=== PATIENT | female | born 1985 | race Caucasian/White ===

== ENCOUNTER → 2016-08-17 | Outpatient (CLI) | payer BC ==
[~2016-08-17] MED LIST: PRENTAB26 PO
== END | disposition home or self-care (01) ==
LOC: C.PAPS 17:23
PROVIDERS: ATTEND Obstetrics & Gynecology
DX: Z01.419 Encounter for gynecological examination (general) (routine) without abnormal findings (principal)

== ENCOUNTER → 2016-10-13 | Outpatient (CLI) | payer BC | END | disposition home or self-care (01) | LOC: C.LAB 11:13 | PROVIDERS: ATTEND Obstetrics & Gynecology | DX: E03.9 Hypothyroidism, unspecified (principal) ==

== ENCOUNTER → 2016-10-20 | Day surgery (SDC) | payer BC ==
[2016-09-17 14:32] VITALS: BMI 25.0
[2016-10-19 14:04] VITALS: Ht 170.2 cm; Wt 74.5 kg
[~2016-10-20] VITALS: Ht 170.2 cm; Wt 74.5 kg
[~2016-10-20] MED LIST changes: +ATROPINE SULFATE 0.1 MG/ML 5ML SYR IV PRN; +BUPIVACAINE 0.5 % 5 MG/1 ML MPF 30ML VIAL ONE; +CEFAZOLIN 1000MG/55 ML D5W IV SCH; +EpHEDrine SULFATE INJ 50 MG/ML AMP IV PRN; +FENTANYL CITRATE INJ 50 MCG/1 ML 2 ML VIAL IV PRN; +FENTANYL CITRATE INJ 50 MCG/1 ML 2 ML VIAL ONE; +GELATIN SPONGE SZ 100 ONE; +HYDROmorphone INJ 1 MG/ML SYR IV PRN; +LACTATED RINGER'S 1000ML 1,000 ML IV SCH; +LIDOCAINE HCL 2% 2 ML VIAL (20MG/ML) ONE; +MIDAZOLAM HCL 1 MG/ML 2ML VIAL ONE; +ONDANSETRON INJ 2 MG/ML 2 ML VIAL IV PRN; -PRENTAB26 PO; +PROPOFOL IV EMULSION 10 MG/ML 20 ML VIAL IV ONE; +SILVER SULFADIAZINE 1% CR 50 GM JAR EXT ONE; +SODIUM CHLORIDE 0.9% 1000ML 1,000 ML IV SCH
--- NOTE | 2016-10-20 07:02 | History & Physical Bridge - [place] ---
H&P Re-Evaluation Bridge Note: I have examined the patient, reviewed the History & Physical and in the interval since the performance of the History & Physical I have noted the following changes of clinical significance: No changes noted
--- NOTE | 2016-10-20 07:03 | Discharge Instructions-SurgCtr ---
Discharge Instructions Date of Service Oct 20, 2016. Visit Reason for Visit: Bilateral Metatarsalgia Painful Vascular Lesions Discharge Discharge Diagnosis / Problem: same as diagnosis Discharge Goals Goal(s): Decrease discomfort, Improve disease control Activity Recommendations Activity Limitations: as noted below Anesthesia . Post Anesthesia Instructions: If you have had General Anesthesia or IV Sedation: * Do not drive today. * Resume driving when surgeon permits. * Do not make important decisions or sign legal documents today. * Call surgeon for: 1. Temperature elevations greater than 101 degrees F. 2. Uncontrollable pain. 3. Excessive bleeding. 4. Persistent nausea and vomiting. 5. Medication intolerance (nausea, vomiting or rash). * For nausea and vomiting use only clear liquids such as: tea, soda, bouillon until nausea subsides, then gradually increase diet as tolerated. * If you have any concerns or questions, call your surgeon's office. If physician is unavailable and it is an emergency, call 911 or go to the nearest emergency room. . Instructions / Follow-Up Instructions / Follow-Up Medications: * Resume previous medications unless instructed by your surgeon. * Take your medications as prescribed. Call our office ([phone]) at any time, if you experience severe pain that does not subside shortly after taking your pain medication. Activity: * You may walk on your operated foot/ankle using the surgical shoe or cast/splint. Do not put any weight on your operated foot/ankle without wearing the surgical shoe or cast sandal.. Special Care: * Keep your bandage clean and dry. Do not remove your bandage unless otherwise instructed. A small amount of blood may appear on the bandage over the surgical site. Call our office ([phone]) if you bandage becomes blood-soaked or wet. * Elevate your operated foot/ankle on pillows, above the level of your heart, as often as possible during the first 2-3 days following surgery. Keep your knee flexed slightly with a pillow under your knee when you elevate your foot/ankle. * Apply a ice bag to your foot/ankle over the operative site for 20-30 minutes out of each hour while you are awake. Do not allow the ice bag to directly contact bare skin. * Avoid bumping or handling any pins visible in your toes. If any pin feels or appears loose, call the office ([phone]). * Take your oral temperature in the morning and at bedtime. Call our office ([phone]) if your temperature rises above 101 degrees Fahrenheit. Call your surgeon's office at ([phone]) for any problems or concerns such as excessive bleeding and/or pain unrelieved by your prescribed pain medications. If you have any questions, please do not hesitate to ask them. Avoid all tobacco products. If you need help to stop smoking, call [facility] FREE QUITLINE at . This is a free call. Follow-up: Follow-up with Dr. Antonio Diet Recommendations Home Diet: resume previous diet Pending Studies Studies pending at discharge: no Medical Emergencies . Who to Call and When: Medical Emergencies: If at any time you feel your situation is an emergency, please call 911 immediately. . Non-Emergent Contact Non-Emergency issues call your: Primary Care Provider . . "Provider Documentation" section prepared by Suma Everett.
--- NOTE | 2016-10-20 07:50 | HISTORY & PHYSICAL EXAMINATION ---
DATE OF ADMISSION: 10/20/2016 HISTORY OF PRESENT ILLNESS: This 31-year-old female presents for preop history and physical requesting lesion surgery. Complaining of skin over the right fifth metatarsal head, plantar aspect of the right heel and posterior halluces callus bleeding with painful lesions that hurt while ambulating. She notes acid therapy, cryotherapy and debridements have improved the condition somewhat; however, yet to resolve the condition and due to spreading and continued involvement she is requesting surgical intervention. PAST SURGICAL HISTORY: Ankle surgery, wisdom teeth removal. PAST MEDICAL HISTORY: Anxiety disorder, Graves' disease, thyroid condition, gallbladder problems. MEDICATIONS: None. ALLERGIES: No known medical allergies. FAMILY HISTORY: Arthritis, Alzheimer's disease, anxiety, stress disorder, gallbladder disease, high cholesterol, hypertension, thyroid disease. SOCIAL HISTORY: The patient admits to alcohol use, drinking described as social. REVIEW OF SYSTEMS: Unremarkable except chief complaint. PHYSICAL EXAMINATION: VITAL SIGNS: 5 feet 8 inches, weight 164 pounds, body mass index 25. CONSTITUTIONAL: The patient appears well-developed and nourished with good attention to body grooming and habitus. HEAD AND FACE: Head is normocephalic and atraumatic without any gross head, face, or neck masses. EYES: Conjunctival and pupillary reaction to light and accommodation are normal. EARS, NOSE, MOUTH, AND THROAT: Unremarkable. NECK: Neck is supple. Trachea is midline without any adenopathy or crepitance palpable. CARDIOVASCULAR: Normal S1, S2 without murmur, gallops, rubs, or clicks noted. RESPIRATORY: Chest is symmetric. No scars are visible. No port or pacemaker noted. LUNGS: Clear to auscultation bilaterally and equal. GASTROINTESTINAL: Abdominal organs, bladder, and kidney show no abnormalities, masses, tenderness, or rigidity. LYMPHATICS: No popliteal or supraclavicular lymphadenopathy noted. VASCULAR: Lower extremity exam DP palpable. PT palpable. DERMATOLOGIC: Cutaneous lesions are observed somewhat right fifth, plantar aspect of the right heel, plantar aspect right hallux, plantar aspect of the right arch and also calloused interruption of skin tension lines, pinpoint bleeding upon debridement. Over 120 lesions are present. NEUROLOGICAL: Touch, pin, vibratory pinprick sensations are normal. Deep tendon reflexes normal. MUSCULOSKELETAL: Muscle tone is normal. Muscle strength 5/5 all groups tested. Muscle tone shows evidence of an enlarged dorsal medial eminence. IMPRESSION: 1. 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 2. Hallux abducto valgus deformity bilaterally. PLAN: Informed the patient the etiology, possible treatment options including debridement, application of acid, surgical excision, cryotherapy, CO2 laser vaporization, bleomycin. Reviewed procedures and complications for each treatment at length. All questions were answered. The patient is aware that no treatment in common use is 100% effective and success rate for all treatments is relatively similar. The patient elects to proceed with CO2 laser vaporization and partial lesion excision. This will be performed over 120 lesions bilateral lower extremities. This will be performed under local with IV sedation as an outpatient at the surgery center. The procedure, risks and complications were fully reviewed with the patient. Consent form and foot diagram and illustration reviewed in all their entire and all the patient's questions were answered. Complications were discussed in detail with the patient including pain, infection, swelling that may or may not be excessive, pins and needles feeling, numbness, metatarsalgia, excessive bleeding, blanching of skin, enlarged scar, failure of the procedure, recurrence or worsening condition which may or may not require further surgery, adverse reaction to anesthesia, allergic reaction to suture or other implant material, loss of toe, foot, or leg; transfer lesion or callus, peripheral neurovascular complications such as phlebitis, damage to nerves or vascular structures, significant chronic pain, chronic nerve pain or damage, and general medical complications. The patient will be required to be in a surgery shoe for a minimum of 3-7 days and not return to dress shoe for 3 weeks depending on postop edema, need for accommodative padding. She is aware that these will have to stay dry to avoid infection for over 6 weeks. She is aware that this is an elective procedure and I recommended a second opinion. She states she understood, consent form was signed with a copy of the foot diagram was given to patient. Verbal and written postop instructions were given. The patient will return to the office for postop check or sooner if medically necessary. Instructed to keep the dressing clean, dry and intact until seen at the office at time of the preoperative appointment, prescriptions for Silvadene, hydrocodone and Augmentin were dispensed.
[2016-10-20 08:30] VITALS: TEMP 36.4
[2016-10-20 09:07] VITALS: BP 91/62; PULSE 44; O2SAT 100
--- NOTE | 2016-10-20 09:17 | Anesthesia Progress Nt - [facility] ---
Anesthesia Post Op Note Date & Time Oct 20, 2016 at 09:17 Vital Signs Pain Intensity: 0 Vital Signs Past 12 Hours Date Time Temp Pulse Resp B/P Pulse Ox O2 Delivery O2 Flow Rate FiO2 10/20/16 09:07 44 91/62 100 Room Air 10/20/16 08:30 36.4 68 16 95/66 98 Room Air 10/20/16 06:53 36.5 62 16 108/70 97 Room Air Notes Mental Status: alert / awake / arousable, participated in evaluation Pt Amnestic to Procedure: Yes Nausea / Vomiting: adequately controlled Pain: adequately controlled Airway Patency, RR, SpO2: stable & adequate BP & HR: stable & adequate Hydration State: stable & adequate Anesthetic Complications: no major complications apparent
--- NOTE | 2016-10-20 10:52 | OPERATIVE REPORT ---
DATE OF OPERATION: 10/20/2016 PREOPERATIVE DIAGNOSES: 1. Painful vascular lesions bilaterally. 2. Cutaneous vascular lesions bilaterally. 3. Metatarsalgia secondary to lesions. POSTOPERATIVE DIAGNOSES: Same. PROCEDURES: Partial lesion excision to the depth of 1.2, right x2, left x4; CO2 laser vaporization 6 square cm bilateral lower extremity. HEMOSTASIS: None. ESTIMATED BLOOD LOSS: Less than 5 mL. ANESTHESIA: IV with local sedation, preoperative block given 0.5% Marcaine plain, a total of 30 mL. MATERIALS: Gelfoam. COMPLICATIONS: None. DISPOSITION: The patient tolerated the procedure and anesthesia well without complications, transferred to recovery room with vital signs stable and neurovascular status intact. DESCRIPTION OF PROCEDURE: The patient was brought to the OR and placed on the OR table in supine position. Upon completion of sedation by the anesthesia department, a local field block was performed with 30 mL 0.5% Marcaine plain. The feet were scrubbed, prepped and draped in the usual aseptic fashion. Attention was directed over painful lesions. Four areas were excised from the left foot. One of these included a pigmented lesion in the mid foot that was not of cutaneous vascular lesion though an area of irritation for the patient. Three were noted over the left hallux. These were sent and labeled separately and 2 cutaneous vascular lesions from the right hallux. All these were excised to the depth of 1.2 cm. These areas were ablated with the exception of the arch pigmented lesion with CO2 laser at 10 gonzales. Area was debrided and reapplication applied. Gelfoam was placed over the lesion excision sites with Silvadene, 4 x 4s, ABDs, Kerlix and an ELIEL. The patient tolerated the procedure and anesthesia well without complications, transferred to recovery room with vital signs stable and neurovascular status intact. I attest to the content of the Intraoperative Record and any orders documented therein. Any exceptio ns are noted below.
== END | disposition home or self-care (01) ==
LOC: X.SURG 06:45
PROVIDERS: ATTEND Podiatrist Foot & Ankle Surgery
DX: B07.8 Other viral warts (principal); B07.9 Viral wart, unspecified; M77.40 Metatarsalgia, unspecified foot

== ENCOUNTER → 2017-03-31 | Outpatient (CLI) | payer BC | END | disposition home or self-care (01) | LOC: C.LAB 16:24 | PROVIDERS: ATTEND Obstetrics & Gynecology | DX: Z34.81 Encounter for supervision of other normal pregnancy, first trimester (principal) ==

== ENCOUNTER → 2017-03-31 | Outpatient (CLI) | payer BC ==
[2017-04-04 08:05] LABS: CHLAMYDIA TRACH RNA*** NOT DETECTED (NOT DETECTED); GC (NEIS GONORRHOEAE)RNA** NOT DETECTED (NOT DETECTED)
== END | disposition home or self-care (01) ==
LOC: C.LABSPEC 14:42
PROVIDERS: ATTEND Obstetrics & Gynecology
DX: Z34.81 Encounter for supervision of other normal pregnancy, first trimester (principal)

== ENCOUNTER → 2017-10-28 | Outpatient (CLI) | payer BC | END | disposition home or self-care (01) | LOC: C.LABSPEC 15:06 | PROVIDERS: ATTEND Obstetrics & Gynecology | DX: Z34.83 Encounter for supervision of other normal pregnancy, third trimester (principal) ==

== ENCOUNTER 2017-11-28 06:30 | Inpatient (IN) | payer BC ==
[~2017-11-28] VITALS: Ht 172.7 cm; Wt 95.9 kg
[2017-11-29 18:36] VITALS: Ht 172.7 cm; Wt 95.9 kg
[2017-11-29] MEDS ORDERED: LACTATED RINGER'S 1000ML 1,000 ML IV PRN (19:17)
[2017-11-29] MEDS ORDERED: DINOPROSTONE 10 MG INSERT PV ONE (19:30)
[2017-11-29] MEDS ORDERED: PENICILLIN G POTASSIUM IV 6 MU in DEXTROSE 5% 250ML 250 ML IV ONE (19:30)
[2017-11-29 19:48] LABS: HEMATOCRIT 33.8 % (37-47); HEMOGLOBIN 11.6 g/dL (12.0-16.0); MEAN CELL VOLUME 91.6 fL (80-100); MEAN CORPUSCULAR HEMOGLOBIN 31.4 pg (25-34); MEAN CORPUSCULAR HGB CONC 34.3 g/dl (32-36); MEAN PLATELET VOLUME 10.3 fL (7.4-10.4); PLATELET COUNT 191 K/uL (130-400); RED CELL DISTRIBUTION WIDTH CV 12.7 % (11.5-14.5); RED CELL DISTRIBUTION WIDTH SD 42.7 fL (36.4-46.3); WHITE BLOOD COUNT 10.46 K/uL (4.8-10.8)
[2017-11-29] MEDS: PENICILLIN G POTASSIUM IV 3 MU in DEXTROSE 5% 100ML 100 ML IV PRN (23:17)
[2017-11-30] MEDS ORDERED: OXYTOCIN 30 UNITS/500ML NSS IV ONE ×2 (01:53→06:19)
[2017-11-30] MEDS: PENICILLIN G POTASSIUM IV 3 MU in DEXTROSE 5% 100ML 100 ML IV PRN (03:10)
[2017-11-30] MEDS ORDERED: BUTORPHANOL TARTRATE 1 MG/ML VIAL IV PRN (03:15)
[2017-11-30] MEDS ORDERED: BUTORPHANOL TARTRATE 1 MG/ML VIAL ONE (03:15)
[2017-11-30] MEDS ORDERED: EpHEDrine SULFATE INJ 50 MG/ML AMP ONE (05:08)
[2017-11-30] MEDS ORDERED: BUPIVACAINE 0.25% 30 ML VIAL ONE (05:08)
[2017-11-30] MEDS ORDERED: FENTANYL CITRATE INJ 50 MCG/1 ML 2 ML VIAL ONE (05:09)
[2017-11-30] MEDS ORDERED: FENTANYL 2MCG/ML ROPIV 1.25MG/ML 100ML BAG ONE (05:10)
[2017-11-30] MEDS ORDERED: NALOXONE HCL INJ 1 MG in SODIUM CHLORIDE 0.9% 1000ML 1,000 ML IV PRN (05:47)
[2017-11-30] MEDS ORDERED: LACTATED RINGER'S 1000ML 500 ML IV PRN (05:47)
[2017-11-30] MEDS ORDERED: FENTANYL 2MCG/ML ROPIV 1.25MG/ML 100ML BAG EPI PRN (06:00)
[2017-11-30] MEDS ORDERED: NALBUPHINE HCL INJ 10 MG/ML AMP IV PRN (06:00)
[2017-11-30] MEDS ORDERED: EpHEDrine SULFATE INJ 50 MG/ML AMP IV PRN (06:00)
[2017-11-30] MEDS ORDERED: NALOXONE HCL INJ 0.4 MG/1 ML VIAL/CARP IV PRN (06:00)
[2017-11-30] MEDS ORDERED: DiphenhydrAMINE HCL 50 MG/ML VIAL IV PRN (06:00)
[2017-11-30] MEDS ORDERED: ONDANSETRON INJ 2 MG/ML 2 ML VIAL IV PRN (06:00)
[2017-11-30] MEDS ORDERED: METHYLERGONOVINE MALEATE 0.2 MG/ML AMP ONE (06:32)
[2017-11-30] MEDS ORDERED: SUPERCREAM 0.870 % 15GM JAR EXT PRN (06:45)
[2017-11-30] MEDS ORDERED: HYDROCORTISONE ACETATE 25 MG SUPP PR PRN (06:45)
[2017-11-30] MEDS ORDERED: OXYCODONE/ACETAMINOPHEN 5-325 TAB PO PRN (06:45)
[2017-11-30] MEDS ORDERED: DIPHTHERIA/TETANUS/PERTUSSIS 0.5 ML SYR/VIAL IM. ONE (06:45)
[2017-11-30] MEDS ORDERED: LANOLIN OINT EXT PRN (06:45)
[2017-11-30] MEDS ORDERED: METHYLERGONOVINE MALEATE 0.2 MG/ML AMP IM ONE (06:45)
[2017-11-30] MEDS ORDERED: OXYTOCIN 30 UNITS/500ML NSS IV PRN (06:45)
[2017-11-30] MEDS ORDERED: BENZOCAINE 20% AER SPR 82.5 GM CAN EXT PRN (06:45)
[2017-11-30] MEDS ORDERED: ACETAMINOPHEN/CODEINE 300/30MG TAB PO PRN ×2 (06:45)
--- NOTE | 2017-11-30 07:14 | OPERATIVE REPORT ---
DATE OF OPERATION: 11/30/2017 DELIVERY NOTE This is a 31-year-old 3, para 3, treated for Graves' disease. She had an uneventful course. Her blood type is B positive, rubella immune. She went into labor in the morning of 11/29/2017, checked her in the office twice. She began to dilate, sent her to maternity where she was given IV penicillin for positive beta strep status and then eventually given a Cervidil tape. She labored on during the night with the Cervidil tape. Eventually, the tape fell out. She was given a dose of Stadol; however, she was having difficulty with pain management. She went to epidural. Soon she got epidural, she was fully dilated, pushed about 2 times, pushed out a live male infant via direct occiput anterior position over an intact perineum. The infant was suctioned through the mouth and the nose, delivered without difficulty. My own estimation 1 and 5 minute Apgars were 8 and 9 respectively. Placenta was removed with IV Pitocin running, after cord blood was taken. Total blood loss was 300 mL. Perineum had no lacerations. The bimanual examination revealed the uterus to be contracted, no hematoma formation and the patient tolerated delivery well. I attest to the content of the Intraoperative Record and any orders documented therein. Any exception s are noted below.
[2017-11-30] MEDS: PRENATAL VITAMIN TAB PO SCH (08:00)
[2017-11-30] MEDS: FERROUS SULFATE 325 MG TAB PO SCH (08:00)
--- NOTE | 2017-11-30 08:14 | Anesthesia Procedure Note ---
Anesthesia Epidural Removal Nt Date & Time November 30, 2017 at 08:13 Notes Mental Status: alert / awake / arousable, participated in evaluation Nausea / Vomiting: adequately controlled Pain: adequately controlled Airway Patency, RR, SpO2: stable & adequate BP & HR: stable & adequate Hydration State: stable & adequate Neuraxial Anesthesia: was administered, sensory block is resolving Anesthetic Complications: no major complications apparent, pt satisfied with anesthetic care Epidural: removed without complications, with tip intact
[2017-11-30 09:50] VITALS: BP 116/61; PULSE 83; TEMP 36.9
[2017-11-30 11:15] VITALS: BP 106/70; PULSE 78; TEMP 36.7; O2SAT 99
[2017-11-30 15:30] VITALS: BP 109/70; PULSE 68; TEMP 36.8; O2SAT 98
[2017-11-30] MEDS: IBUPROFEN 600 MG TAB PO PRN ×2 (16:43→20:49)
[2017-11-30] MEDS: ACETAMINOPHEN 325 MG TAB PO PRN (18:56)
[2017-11-30 20:00] VITALS: BP 120/74; PULSE 65; TEMP 36.5; O2SAT 98
[2017-11-30 23:30] VITALS: BP 102/65; PULSE 62; TEMP 36.7
[2017-12-01] MEDS: IBUPROFEN 600 MG TAB PO PRN ×4 (01:12→18:58)
[2017-12-01 03:40] VITALS: BP 104/67; PULSE 69; TEMP 36.9
[2017-12-01] MEDS: ACETAMINOPHEN 325 MG TAB PO PRN ×3 (03:42→15:41)
[2017-12-01 07:01] LABS: HEMATOCRIT 34.2 % (37-47); HEMOGLOBIN 11.8 g/dL (12.0-16.0)
[2017-12-01 07:20] VITALS: BP 98/64; PULSE 72; TEMP 36.3; O2SAT 98
[2017-12-01] MEDS: FERROUS SULFATE 325 MG TAB PO SCH (08:37)
[2017-12-01] MEDS: PRENATAL VITAMIN TAB PO SCH (08:37)
--- NOTE | 2017-12-01 09:00 | OB/GYN Progress Note ---
[facility] Progress Note Date of Service: December 01, 2017. Patient is seen and examined. She feels well, no complaints. Ambulating without dizziness Voiding without difficulty Tolerating regular diet with out N&V Bleeding is minimal No fever/ chills/ CP/ SOB/ N&V/ Leg pain Breast feeding without problems Date Time Temp Pulse Resp B/P (MAP) Pulse Ox O2 Delivery O2 Flow Rate FiO2 12/01/17 03:40 36.9 69 18 104/67 (79) Room Air 11/30/17 23:30 Room Air 11/30/17 23:30 36.7 62 18 102/65 (77) Room Air 11/30/17 20:00 36.5 65 18 120/74 (89) 98 Room Air 11/30/17 15:30 36.8 68 18 109/70 (83) 98 Room Air 11/30/17 11:15 99 Room Air 11/30/17 11:15 36.7 78 18 106/70 (82) 99 Room Air 11/30/17 09:50 Room Air 11/30/17 09:50 36.9 83 18 116/61 (79) Room Air Last 24 Hours Test 12/01/17 06:33 Hemoglobin 11.8 g/dL Hematocrit 34.2 % PE: General: Alert, orientedx3, NAD Abd: soft, NT, fundus firm, below Umbilicus Perineum intact, Lochia rubra minimal Ext; NT, no edema AP: 32 yo s/p , ppd# 1 VSS Afebrile doing well Continue routine care All questions were answered D/C home tomorrow
--- NOTE | 2017-12-01 10:14 | Discharge Instructions ---
Discharge Instructions Date of Service December 01, 2017. Admission Reason for Admission: Check Labor Discharge Discharge Diagnosis / Problem: Discharge Goals Goal(s): Routine recovery after delivery Medications Continue Dispensed Medications: lansinoh Activity Recommendations Activity Limitations: as noted below ACTIVITY RECOMMENDATIONS: * Gradual return to full activity over the next 2-3 weeks. * No lifting - nothing heavier than baby over the next 2-3 weeks. * Do not engage in vigorous exercise, sexual activity or sports until cleared by your physician. * Do not drive or operate any motorized equipment until cleared by your physician. * You may shower/bathe daily. BREAST CARE: If you are not breast feeding: * Wear a supportive bra 24 hours a day for one to two weeks. * Avoid stimulating your breasts and nipples as much as possible during the first few weeks after delivery. * When taking a shower, have the warm water hit your back, not breasts. * When your breasts feel full, apply ice packs. Usually three to four times a day helps ease the discomfort. * Take a mild pain medication (Tylenol/Motrin) when you are uncomfortable. If breast feeding: * Use breast milk to lubricate nipples. Lansinoh cream may be used for sore nipples. You do not need to remove cream prior to breast feeding. If using a different brand of cream, check the label for directions regarding removal of cream prior to nursing. * Wear a supportive bra. * If having problems with breasts or breast feeding, call a sr risk management consultant or your health care provider. EPISIOTOMY CARE: After delivery, if you have an episiotomy (stitches), the following steps will ease discomfort and aid healing. * For the first 24 hours after delivery, place ice packs next to your episiotomy to help reduce swelling. * After the first 24 hour-period, sitz baths, either portable or in the tub, are suggested. A shower with a shower arm sprayed over the episiotomy may be comforting. * Evita care should be done after each voiding and bowel movement. Squirt warm water from a plastic bottle over the perineum (region of the body between the anus and urinary opening) and pat dry. * Use Dermoplast to ease discomfort. Shake container. [place] directly over the episiotomy. * Place a Tucks on a clean sanitary pad next to your episiotomy. OVER THE COUNTER MEDICATION: * For discomfort or pain, you may use Acetaminophen (Tylenol), Ibuprofen (Advil ), or Naproxen (Aleve) following the package directions. * For constipation you may use Colace following the package directions. SPECIAL CARE INSTRUCTIONS: When you are discharged from the hospital, it is important for you to follow the instructions listed below: * During the first week at home, you should be able to care for yourself and your baby. In addition, the usual light household activities are encouraged. * Limit your activities to the way you feel. Do not try to clean the house or move furniture. Be sensible. * If you actively engage in sports and have done so up until the time of your delivery, you may resume these activities as soon as you feel able. This may take up to one month or even longer. Use good judgment. * Continue to take your vitamins for at least six weeks after the of your baby. * Your diet need not be limited unless you were on a special diet before your delivery. Breast-feeding mothers need around 2500 calories per day and at least 64-80 ounces of fluid per day (8 to 10 glasses). * You should eat foods from the four major food groups. Crash diets or fad diets are to be avoided. Eating lean meats, fresh fruits and vegetables, low-fat dairy products, high fiber foods and a regular exercise program, will help you get back to your pre- weight without putting your health at risk. * Constipation is sometimes a problem after delivery. Take a mild laxative as needed. If breast feeding, Milk of Magnesia is acceptable to use. You may use a suppository or Fleets enema if no episiotomy. * A daily shower or tub bath is suggested. Be sure to thoroughly and gently dry the perineum. * A bloody vaginal discharge will usually continue until around four weeks post . A small amount of bleeding may continue for as long as six weeks. Vaginal discharge changes from the bright red bleeding after delivery to pink then brownish and finally yellowish-pink before becoming white and disappearing. * Bleeding may increase with activity. Your first period may come in 4-8 weeks. If you are breast feeding, your period may be delayed even longer. * [place] (sex) can begin whenever both you and your partner feel comfortable and do not have any form of genital infection. It is recommended that you wait until after your return appointment and discuss with your physician. If you have questions, please talk to your health care practitioner. A condom should be used to prevent infection and . * Foreplay, gentle intercourse and lubrication is very important the first several times to prevent pain. A water-based lubricant such as K-Y jelly or Astroglide may be used. * Tampons may be used six weeks after delivery. * Douching should be avoided for 6 weeks after delivery. * If you have RH negative blood and your baby is RH positive, you will receive RHOGAM by injection prior to discharge. The nurse will give you a card to keep with you that has the date and place that you received RHOGAM after delivery. * During your care, you had a Rubella screen done to check for the presence of rubella antibodies in your blood. If your test was negative, you will receive a Rubella vaccine prior to discharge. This vaccine may cause a fever, soreness at the injection site and flu-like symptoms. If these symptoms persist, notify your health care practitioner. is not advised for three months after a Rubella vaccine. There is a higher chance of having a baby with defects if conceived within three months of getting the vaccine. * If you were discharged 24 hours from delivery or before 48 hours: Visiting nurses will come to your home 48 hours after discharge to assess you and your baby. The visiting nurse will meet with you while you are in the hospital to arrange a time and get directions to your home. * Verbalizes understanding of car seat law as reviewed with patient nursing. * Car Seat hand-out given and reviewed with patient by nursing. * Shaken baby information reviewed with patient by nursing. Call you doctor if: * Heavy bleeding (saturating several pads an hour) or passing clots the size of your fist. * A fever >101 degrees F (38.3 degrees C) on two occasions four hours apart and/or chills. * Unusual pain in the pelvic or vaginal areas. * "Baby Blues" lasting longer than two weeks. If you have any questions or concerns, call your health care practitioner at . FOLLOW-UP VISIT: * Please call the office at to schedule a 6 week examination. It is important you keep this appointment. * It is important for you to make arrangements for either yearly or twice yearly check-ups thereafter. . Current Hospital Diet Patient's current hospital diet: Regular Diet Discharge Diet Recommended Diet: Regular Diet Pending Studies Studies pending at discharge: no Medical Emergencies . Who to Call and When: Medical Emergencies: If at any time you feel your situation is an emergency, please call 911 immediately. . Non-Emergent Contact Non-Emergency issues call your: Specialist Call Non-Emergent contact if: temperature is above 100.5, your pain is not controlled, your pain is worsening . . "Provider Documentation" section prepared by Antoine Rob. .
[2017-12-01 15:35] VITALS: BP 104/72; PULSE 68; TEMP 36.4
[2017-12-01] MEDS ORDERED: BISACODYL 5 MG TABEC PO SCH (20:00)
[2017-12-01 20:20] VITALS: BP_DIAS 72; PULSE 68; TEMP 36.4
[2017-12-02] MEDS ORDERED: BISACODYL 10 MG SUPP PR PRN (07:00)
== END 2017-12-01 20:30 | disposition home or self-care (01) | DRG 775 ==
LOC: C.LD 11-29 17:28 → C.OBG 11-30 09:58
PROVIDERS: ADMIT Obstetrics & Gynecology; ATTEND Obstetrics & Gynecology
PROC: 10E0XZZ Delivery of Products of Conception, External Approach (ICD-10-PCS; principal; 2017-11-30)
DX: O99.824 Streptococcus B carrier state complicating childbirth (principal); Z3A.40 40 weeks gestation of pregnancy; Z37.0 Single live birth

== ENCOUNTER 2022-01-07 06:47 | Inpatient (IN) ==
[2022-01-07] MEDS ORDERED: OXYTOCIN 30 UNITS/500 ML BAG IV PRN ×2 (07:44→17:21)
[2022-01-07] MEDS ORDERED: PENICILLIN G POTASSIUM 6 MU in DEXTROSE 5% 250 ML IV STA (07:49)
[2022-01-07 08:24] LABS: Hematocrit (blood only) 35.9 % (37-47); Hemoglobin 11.8 g/dL (12.0-16.0); Mean Corpuscular Hgb Conc 32.9 g/dL (32-36); Mean Corpuscular Volume 91.3 fL (80-100); Mean Platelet Volume 10.7 fL (7.4-10.4); Platelet Count 248 K/uL (130-400); RDW Coefficient of Variation 13.4 % (11.5-14.5); RDW Standard Deviation 44.2 fL (36.4-46.3); Red Blood Count 3.93 M/uL (4.2-5.4); White Blood Count 8.39 K/uL (4.8-10.8)
[2022-01-07] MEDS: LACTATED RINGER'S 1,000 ML IV PRN ×2 (08:35→15:24)
[2022-01-07] MEDS ORDERED: miSOPROStoL 50 MCG TAB PO ONE (12:29)
[2022-01-07] MEDS: PENICILLIN G POTASSIUM 3 MU in DEXTROSE 5% 100 ML IV PRN ×2 (12:40→16:38)
[2022-01-07] MEDS ORDERED: ePHEDrine sulfate 50 MG/ML AMP ONE (14:40)
[2022-01-07] MEDS ORDERED: BUPIVACAINE 0.25% 30 ML VIAL ONE (14:42)
[2022-01-07] MEDS ORDERED: fentaNYL citrate 100 MCG/2 ML VIAL ONE (14:42)
[2022-01-07] MEDS ORDERED: SODIUM CHLORIDE 0.9% INJ 10 ML VIAL ONE (14:42)
[2022-01-07] MEDS ORDERED: fentaNYL 2MCG/ML ROPIVACAINE 1.25MG/ML 100 ML BAG EPI ONE (14:42)
[2022-01-07] MEDS ORDERED: ePHEDrine sulfate 50 MG/ML AMP IV PRN (14:59)
[2022-01-07] MEDS ORDERED: NALBUPHINE HCL INJ 10 MG/ML AMP IV PRN (14:59)
[2022-01-07] MEDS ORDERED: NALOXONE HCL 1 MG in SODIUM CHLORIDE 0.9% 1000ML 1,000 ML IV PRN (14:59)
[2022-01-07] MEDS ORDERED: diphenhydrAMINE 50 MG/ML VIAL IV PRN (14:59)
[2022-01-07] MEDS ORDERED: fentaNYL 2MCG/ML ROPIVACAINE 1.25MG/ML 100 ML BAG EPI PRN (14:59)
[2022-01-07] MEDS ORDERED: ONDANSETRON INJ 2 MG/ML 2 ML VIAL IV PRN (14:59)
[2022-01-07] MEDS ORDERED: NALOXONE HCL 0.4 MG/1 ML VIAL/CARP IV PRN (14:59)
--- NOTE | 2022-01-07 15:01 | Anesthesiology Consultation ---
Date of Service January 07, 2022 Assessment & Plan (1) Encounter for pre-operative examination: Chart Review Chart Review: Acceptable Risk for Labor Epidural Consults Requested none History Height/Weight Height: 5 ft 7 in Weight: 106.541 kg Allergies Allergy/AdvReac Type Severity Reaction Status Date / Time No Known Allergies Allergy Unverified 11/29/17 18:34 Medications Home Medications Medication Instructions Recorded Confirmed Last Taken Xyzal 01/06/22 01/06/22 vit no.95-ferrous 1 tab PO 01/06/22 01/06/22 fumarate 28 mg-folic acid 800 mcg tablet () Active Medications Generic Name Dose Route Start Last Admin Trade Name Freq PRN Reason Stop Dose Admin Lactated Ringer's 1,000 mls @ 125 mls/hr 01/07/22 07:44 01/07/22 13:45 Lr IV 01/09/22 07:43 0 mls/hr .Q8H PRN Infusion L&D Protocol Protocol Penicillin G Potassium 3 mu/ 106 mls @ 100 mls/hr 01/07/22 10:57 01/07/22 13:44 Dextrose IV 01/17/22 10:56 Infused Q4H PRN Infusion GBS(+) Until Delivery Past Medical History Medical History Sprain of ligament of left ankle Exercise / Class Metabolic Activity II 4-5 Yardwork/Stairs/Walk up hill Past Surgical History Surgical History [place] teeth extracted Past Anesthesia History No Hx of Anesthesia Complications and No Family Hx of Anesthesia Complications History of PONV No Hx of PONV and No Hx of Motion Sickness Social History Smoking Status: Never smoker Hx Alcohol Use: No Hx Substance Use: No Physical Exam Vital Signs Last Vital Signs Temp 36.7 C 01/07/22 12:45 Pulse 70 01/07/22 15:23 Resp 18 01/07/22 07:11 BP 136/86 01/07/22 15:23 Pulse Ox 100 01/07/22 15:19 Testing Laboratory Results 01/07/22 07:52 Blood Type B Positive 01/07/22 07:52 Antibody Screen NEGATIVE 01/07/22 07:52
[2022-01-07] MEDS ORDERED: METHYLERGONOVINE MALEATE 0.2 MG/ML AMP ONE (17:19)
[2022-01-07] MEDS ORDERED: oxyCODONE/ACETAMINOPHEN 5mg/325mg TAB PO PRN (17:21)
[2022-01-07] MEDS ORDERED: METHYLERGONOVINE MALEATE 0.2 MG/ML AMP IM ONE (17:21)
[2022-01-07] MEDS ORDERED: DIPHTHERIA/TETANUS/PERTUSSIS 0.5 ML SYR/VIAL IM ONE (17:21)
[2022-01-07] MEDS ORDERED: bisacodyL 10 MG SUPP PR PRN (17:21)
[2022-01-07] MEDS ORDERED: BENZOCAINE 20% AER SPR 82.5 GM CAN EXT PRN (17:21)
[2022-01-07] MEDS ORDERED: ACETAMINOPHEN 325 MG TAB PO PRN (17:21)
[2022-01-07] MEDS ORDERED: ACETAMINOPHEN W/CODEINE #3 1 TAB PO PRN (17:21)
[2022-01-07] MEDS ORDERED: HYDROCORTISONE ACETATE 25 MG SUPP PR PRN (17:21)
--- NOTE | 2022-01-07 18:06 | Delivery Summary ---
DATE OF DELIVERY: 01/07/2022. DELIVERY NOTE: She is a 4, para 4, B positive, group B strep positive, was called the answer ing service was in early labor. She came in, she was like 2-3, having sporadic contractions. She wa s given a dose of penicillin, then about 4 hours later, she was given a p.o. Cytotec, got her second dose of penicillin and then at about 5:00 p.m., she went to full dilatation. Prior to getting to full dilatation, she was given epidural around 2-2:30. Epidural worked well. She went to full dilatatio n, pushed out a live female via direct occiput anterior position over an intact perineum. The infant was suctioned through the mouth and the nose. Shoulders were delivered without difficulty. cord was clamped after allowing it to pulse for one full minute. Cord was then cut by the father. C ord blood was taken. With IV Pitocin running the placenta was removed intact. Following this, she w as given IM Methergine. Inspection of the perineum revealed everything to be intact. No lacerations . Estimated blood loss was 200 mL and placenta was sent not for examination, but just to be held. Job ID: [id number]
--- NOTE | 2022-01-07 18:58 | Anesthesia Procedure Note ---
Date of Service January 07, 2022 Anesthesia Post Epidural Note Vital Signs Vital Signs: Temp Pulse Resp BP Pulse Ox 36.5 C 76 16 110/60 100 01/07/22 15:47 01/07/22 18:51 01/07/22 15:47 01/07/22 18:51 01/07/22 17:09 Notes Mental Status: alert / awake / arousable and participated in evaluation Patient Amnestic to Procedure: No Nausea / Vomiting: adequately controlled Pain: adequately controlled Airway Patency, RR, SpO2: stable & adequate BP & HR: stable & adequate Hydration State: stable & adequate Neuraxial Anesthesia: was administered and sensory block is resolving Anesthetic Complications: no major complications apparent and Pt Satisfied with anesthetic care Epidural: Removed without complications and With tip intact
[2022-01-07] MEDS: DOCUSATE SODIUM 100 MG CAP PO SCH (21:02)
[2022-01-07] MEDS: IBUPROFEN 600 MG TAB PO PRN (23:41)
[2022-01-08] MEDS: DOCUSATE SODIUM 100 MG CAP PO SCH (07:27)
[2022-01-08] MEDS: IBUPROFEN 600 MG TAB PO PRN ×3 (07:30→18:00)
[2022-01-08] MEDS ORDERED: PRENATAL VITAMIN 1 TAB PO SCH (08:00)
[2022-01-08 08:10] LABS: Hematocrit (blood only) 33.4 % (37-47); Mean Corpuscular Hemoglobin 30.1 pg (25-34); Mean Corpuscular Hgb Conc 32.9 g/dL (32-36); Mean Corpuscular Volume 91.3 fL (80-100); Mean Platelet Volume 10.5 fL (7.4-10.4); Platelet Count 210 K/uL (130-400); RDW Coefficient of Variation 13.5 % (11.5-14.5); RDW Standard Deviation 44.7 fL (36.4-46.3); Red Blood Count 3.66 M/uL (4.2-5.4); White Blood Count 10.95 K/uL (4.8-10.8)
--- NOTE | 2022-01-08 08:42 | Obstetrical Progress Note ---
Date of Service January 08, 2022 Assessment & Plan Admission and Anticipated Discharge Date Admission Date: January 07, 2022 Subjective abdomen soft and non tender no calf tenderness ambulating well vaginal bleeding scant hgb 11.0 Results & Data ([facility]) Vital Signs (Past 12 Hours) Vital Signs Temp Pulse Resp BP Pulse Ox 01/08/22 07:30 36.4 C L 79 16 109/71 99 01/08/22 04:00 36.6 C 65 20 118/76 98 01/08/22 00:05 36.7 C 85 16 108/69 98
[2022-01-08] MEDS ORDERED: bisacodyL 5 MG TABEC PO SCH (20:00)
== END 2022-01-08 19:07 | disposition home or self-care (01) | DRG 807 ==
LOC: OPB 06:47 → 4S1 06:59 → 4E2 19:35